=== PATIENT | male | born 1980 | race Caucasian/White ===

== ENCOUNTER 2020-10-24 00:27 | Outpatient (CLI) | payer OTHER, SELFPAY ==
[2020-10-24 18:50] LABS: SARS-CoV-2 RNA PCR Negative
== END 2020-10-24 00:28 | disposition home or self-care (01) ==
LOC: ANHCOVIDDT 00:27
PROVIDERS: Visit Provider Surgery
DX: Z01.818 Encounter for other preprocedural examination (principal); K40.90 Unilateral inguinal hernia, without obstruction or gangrene, not specified as recurrent
CPT/HCPCS: C9803; U0003

== ENCOUNTER 2020-10-24 08:38 | Outpatient (CLI) | payer OTHER, SELFPAY | END 2020-10-24 08:39 | disposition home or self-care (01) | PROVIDERS: Visit Provider Surgery | DX: Z01.818 Encounter for other preprocedural examination (principal); K40.90 Unilateral inguinal hernia, without obstruction or gangrene, not specified as recurrent | CPT/HCPCS: 36415; 86850; 86900; 86901 ==

== ENCOUNTER 2020-10-29 04:31 | Outpatient (CLI) | payer OTHER, SELFPAY ==
[2020-10-29 19:32] LABS: SARS-CoV-2 RNA PCR Negative
== END 2020-10-29 04:32 | disposition home or self-care (01) ==
LOC: ANHCOVIDDT 04:32
PROVIDERS: Visit Provider Surgery
DX: Z01.812 Encounter for preprocedural laboratory examination (principal); Z20.822 Contact with and (suspected) exposure to COVID-19
CPT/HCPCS: C9803; U0003

== ENCOUNTER 2020-11-02 02:18 | Day surgery (SDC) | payer OTHER, SELFPAY ==
[2020-10-17 12:25] VITALS: BMI 25.7
[2020-11-02] VITALS (10 sets, daily range): BP systolic 123–145; BP diastolic 81–96; PULSE 55–81; RESP 12–20; TEMP 36.3–37.2; O2SAT 96–100
[2020-11-02] MEDS: ACETAMINOPHEN 500 MG TABLET 1000 MG PO (12:08)
--- NOTE | 2020-11-02 12:10 | P.HP_ITS ---
H&P: HPI History of Present Illness Date/Time: 11/02/20 12:10 Chief Complaint: incarcerated [facility] Narrative: Mitchell Peguero is a 40 year old male who presents for evaluation of right groin tenderness. He presented to [facility] on 03/21/20 with intermittent bulging and tenderness to the right groin. He was told to see a surgeon. He states the area has increased in size since March. It is becoming more painful, especially with activity. He is eating well and having regular BM's without difficulty. He reports that recently hernia has become much larger and extends into R scrotum. Pt reports it is now always out and it does not go back in anymore. Review of Systems Review of Systems: All systems reviewed & are unremarkable except as noted in HPI and below PMFSH Family History Family History Father Brain cancer Social History Social History Smoking packs per day: 0.5 Smoking cigarettes per day: 10.0 Years smoked: 10 Smoking pack-years: 5.00 Smoking status: Current some day smoker Tobacco type: cigarettes Alcohol intake: current Substance use: unknown Substance use type: marijuana Last use: 10/16/20 Living arrangements: with roommate(s) Additional occupation/education comments: [employer] Gender identity (if verbalized by the patient): Male Spiritual care concerns: No Meds Home Medications and Allergies Home Medications Medication Instructions Recorded Confirmed Type No Home Medications 06/22/20 11/02/20 History Allergies Allergy/AdvReac Type Severity Reaction Status Date / Time Penicillins Allergy Severe Hives Verified 11/02/20 12:07 Exam Const: General: cooperative, healthy appearing, comfortable and no acute distress Orientation/consciousness: patient oriented x3 Limitations: no limitations Resp: Effort & Inspection: normal respiratory effort Auscultation: clear to auscultation bilaterally Cardio: Rate: regular rate Rhythm: regular rhythm GI: Inspection: normal to inspection, non-distended and no incisions GI Palp: Yes Soft to palpation, No Tenderness to palpation present (GI) and No Guarding due to palpation present (GI) Other: lg [facility] - now incarcerated c intrascrotal extension Assessment and Plan Assessment and plan (1) Incarcerated right inguinal hernia: Code(s): K40.30 - Unilateral inguinal hernia, with obstruction, without gangrene, not specified as recurrent Status: Acute Assessment and Plan: will setup for repair c mesh
--- NOTE | 2020-11-02 12:14 | WPDHPUPDATE1 ---
History and Physical Update Update Date/Time: 11/02/20 12:14 History and Physical has been reviewed, including an updated exam of the patient. There are NO changes in the patient's condition. Risks, benefits, and alternatives have been discussed and questions answered. Patient agrees to proceed with procedure.
[2020-11-02] MEDS: LACTATED RINGERS 1,000 ML 30 ML IV CONT ×2 (12:15→14:48)
[2020-11-02] MEDS: KETOROLAC 15 MG/ML VIAL (*BKC) IV PUSH (12:18)
--- NOTE | 2020-11-02 12:19 | WPDANESEPPF ---
Anes - Initial Pre Proc Eval Procedure: Operation Date: 11/02/20 13:00 Proposed Procedures p Robotic Assisted Laparoscopic Right Inguinal Hernia Repair with Mesh - Stephanie Galeana MD Date/Time: 11/02/20 12:19 Surgeon: Stephanie Galeana MD Pre Op Diagnosis: right inguinal hernia Patient Data Age: 40 Gender: M Height: 6 ft Weight: 86.2 kg Allergies Allergy/AdvReac Type Severity Reaction Status Date / Time Penicillins Allergy Severe Hives Verified 11/02/20 12:07 Home Medications Medication Instructions Recorded Confirmed Type No Home Medications 06/22/20 11/02/20 History Patient hx anesthesia problems: none Family hx anesthesia problems: none PMFSH Family History Family History Father Brain cancer Social History Social History Smoking packs per day: 0.5 Smoking cigarettes per day: 10.0 Years smoked: 10 Smoking pack-years: 5.00 Smoking status: Current some day smoker Tobacco type: cigarettes Alcohol intake: current Substance use: unknown Substance use type: marijuana Last use: 10/16/20 Living arrangements: with roommate(s) Additional occupation/education comments: [employer] Gender identity (if verbalized by the patient): Male Spiritual care concerns: No Anes - Eval Final PreProcedure Day of Procedure 11/02/20 12:19 Patient weight: normal Heart: regular rate and rhythm Lungs: clear to auscultation Airway: Mallampati scale class II Neurological: alert and oriented Last oral intake: >/= 8 hours ASA classification: II Emergent: no Anesthetic plan: proceed Anesthesia type and monitoring: general ETT and standard monitoring Informed Consent: The patient's anesthetic plan and its attendant risks and benefits were discussed with the patient/family/POA. Questions were solicited and answers provided to the satisfaction of the patient/family/POA.
[2020-11-02] MEDS: CLINDAMYCIN 900 MG/D5W 50 ML 900 MG/50 ML PIGGYBACK 50 MG IVPB (13:04)
[2020-11-02] MEDS: BUPIVACAINE HCL 0.5% PF 30 ML VIAL INFILTRATE (14:16)
--- NOTE | 2020-11-02 14:37 | PM.PROC ---
Procedure Note - Detailed Date of procedure: 11/02/20 Pre-op diagnosis: right inguinal hernia incarcerated right inguinal hernia Post-op diagnosis: same Procedure performed: robotic assisted incarcerated right inguinal hernia repair with mesh Description of procedure: Patient was brought into the operating room and placed in the supine position. After adequate induction of general anesthesia, the patient was prepped and draped in normal sterile fashion. A time-out was then done to verify the patient's identity, as well as the procedure being performed. Began by making a 8 mm incision in the supraumbilical region, a Veress needle was then placed into the peritoneal cavity. CO2 gas was then insufflated and after adequate pneumoperitoneum was achieved, the Veress needle was removed. I then placed an 8 mm trocar through this incision. I then placed the endoscope through this trocar site and under direct visualization placed 2 further 8 mm ports in the right and left mid abdomen. The [id number] robot was then docked to the 3 trocar sites. I then scrubbed out and went to the robotic console. Upon examining the pelvis, it was noted that the patient had a incarcerated right inguinal hernia with cecum and appendix. I was able to reduce the cecum and appendix with gentle retraction out of the hernia. The cecum and appendix were noted to be unremarkable status post reduction. Once this was done, I began by making a preperitoneal flap approximately 6 cm superior to the defect. This flap was carried medially past the umbilical ligaments in laterally to the transversalis. It then began dissection of my medial compartment taking this down to the pubic tubercle. I then began the lateral dissection taking this down to the transversalis fascia. Once these compartments were achieved, I began dissection around the cord structures. It was noted at this point that the patient had a large indirect hernia with scrotal extension. The patient also had a large lipoma the cord. Using careful dissection, was able to reduce the lipoma cord as well separate the indirect hernia off the cord structures. This was quite tedious given the large sac and scrotal extension. Reduction was aided be gentle external pressure applied by the first officer and flight instructor. Once this was adequately done, I went ahead and placed a 15 x 10 piece of [employer] mesh into the abdominal cavity. The mesh was carefully positioned, centering the center of the mesh over the indirect defect. Once this was done, was very satisfied with our repair. I then closed the peritoneal flap with a running 2.0 V Lock suture. The abdomen was then desufflated, and all ports were removed. All incisions were then closed with the 4.0 monocryl suture. Dermabond was placed on each wound. The patient tolerated the procedure well, was extubated in the operating room postoperatively, and will now be transferred to the recovery room in stable condition. Implants: 15 x 10 progrip mesh Anesthesia: GETA Surgeon: Stephanie Galeana MD Estimated blood loss (mL): 10 Drains: No Packing: No Pathology: none sent Complications: No immediate complications Condition: stable Disposition: PACU Findings: indirect RIH c incarcerated cecum and appendix
== END 2020-11-02 16:54 | disposition home or self-care (01) ==
PROVIDERS: Visit Provider Surgery
PROC: 8E0Y4CZ Robotic Assisted Procedure of Lower Extremity, Percutaneous Endoscopic Approach (ICD-10-PCS; CPT 49650; principal; 2020-11-02 13:00)
DX: K40.30 Unilateral inguinal hernia, with obstruction, without gangrene, not specified as recurrent (principal); F17.210 Nicotine dependence, cigarettes, uncomplicated; F12.90 Cannabis use, unspecified, uncomplicated
CPT/HCPCS: 49650; S2900; A9270; C1781; J1100; J1170; J1885; J2250; J2405; J2704; J2710; J3010; J7120